=== PATIENT | female | born 1955 | race Caucasian/White ===

== ENCOUNTER 2021-02-01 20:44 | Inpatient (IN) ==
--- NOTE | 2021-02-01 22:52 | Emergency Department Note ---
HPI General Chief complaint: Shortness of Breath/Dyspnea Stated complaint: low O2 sats @ home Time Seen by Provider: 02/01/21 22:03 Source: patient Mode of arrival: ambulatory Limitations: no limitations History of Present Illness HPI Narrative: Narrative: 65 yo F w/ h/o HTN, hypothyroid, RA on chronic daily steroids p/w hypoxia on home O2 monitor. She has been feeling unwell x 6 days w/ malaise, headache, fatigue, and a dry cough. She was seen here in the ED last night and Dx'd w/ COVID19 and influenza. The provider yesterday also suspected a COPD exacerbation and thus started her on azithromycin for presumed COPD exacerbation. He d/w her the option at that time of a steroid burst, and she declined. In speaking w/ the pt, she denies any previous h/o COPD and reports that she has never had PFTs done. She reports that she has inhalers/nebulizers at home but they were given to her after an acute episode of bronchitis. She currently reports that all of her Sx are stable. She has not had any increased SOB, and states that she is only here as her children were worried about her pulse ox, which showed SaO2 in the 70s at home. Related Data Home Medications Medication Instructions Recorded Confirmed aspirin 81 mg tablet,delayed 81 mg PO QDAY 07/12/19 01/29/21 release losartan 50 mg tablet 50 mg PO BID 07/12/19 01/29/21 omega-3 fatty acids 1,000 mg 1,000 mg PO QDAY 07/12/19 01/29/21 capsule Previous Rx's Medication Instructions Recorded meloxicam 7.5 mg tablet See Rx Instructions .ROUTE 05/28/20 .COMPLEX #60 tab folic acid 1 mg tablet 1 mg PO QDAY #30 tab 11/16/20 diclofenac sodium 1 % topical gel 4 g TOPICAL .COMPLEX #100 g 11/18/20 albuterol sulfate 90 mcg/actuation 2 puff INHALATION .q4-6h PRN #8.5 g 11/20/20 aerosol inhaler methotrexate sodium 2.5 mg tablet 20 mg PO QWEEK #32 tab 11/30/20 atorvastatin 40 mg tablet 40 mg PO QHS #90 tab 12/16/20 amlodipine 5 mg tablet See Rx Instructions .ROUTE 12/17/20 .COMPLEX #90 tab levothyroxine 125 mcg tablet See Rx Instructions .ROUTE 12/17/20 .COMPLEX #90 tab prednisone 5 mg tablet 5 mg PO QDAY #30 tab 01/25/21 azithromycin See Rx Instructions .ROUTE 01/31/21 .COMPLEX #6 tab benzonatate [Tessalon Perles] 100 mg PO TID PRN #30 cap 01/31/21 Allergies Allergy/AdvReac Type Severity Reaction Status Date / Time No Known Drug Allergies Allergy Verified 01/29/21 10:14 Review of Systems ROS ROS Narrative: Narrative: PFSH Narrative Patient History Narrative: Narrative: Medical/Surgical/Family History All Active Problems (Updated 02/02/21 @ 03:35 by Dimitri Duffy MD) Pneumonia due to 2019-nCoV (Acute) Influenza A (Acute) Cough (Acute) Hypoxia (Acute) COVID-19 (Acute) Influenza A (Acute) Viral syndrome (Acute) Wheezes (Acute) Shortness of breath (Acute) Hyperlipemia (Acute) Anemia (Acute) Bronchitis, acute (Acute) Chest pain (Acute) Dyspnea (Acute) Racing heart beat (Acute) History of thyroidectomy, total (Acute) History of thyroid cancer (Acute) History of cholecystectomy (Acute) Hypertension (Acute) Multiple joint pain (Acute) Hypothyroidism (Acute) Rheumatoid factor positive (Acute) 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 (Acute) Obesity (Acute) Rheumatoid arthritis (Acute) Rheumatoid nodules (Chronic) Long-term current use of high risk medication other than anticoagulant (Acute) Long-term current use of steroids (Chronic) Encounter for long-term (current) use of high-risk medication (Acute) Lethargy (Acute) Diarrhea (Acute) Fatigue (Acute) Medical History Bronchitis, acute Diarrhea Encounter for long-term (current) use of high-risk medication Fatigue Long-term current use of high risk medication other than anticoagulant Long-term current use of steroids Multiple joint pain Post menopausal syndrome Rheumatoid arthritis Rheumatoid factor positive Rheumatoid nodules Shortness of breath Thyroid cancer (~2004) Viral syndrome Wheezes Surgical History Hx of thyroidectomy (~2004) Family History Mother Congestive heart failure Cardiac pacemaker Chronic obstructive lung disease Grandmother Myocardial infarct Social History Smoking Status: Current every day smoker Alcohol Intake Frequency: a few times a month Substance Use: does not use Exam Narrative Narrative: Narrative: General Limitations: no limitations General appearance: Present alert and in no apparent distress Head Head: Present atraumatic and normocephalic ENT ENT: Present normal oropharynx and mucous membranes moist Chest Chest: Present normal inspection and symmetric chest wall rise Respiratory Respiratory: Present normal lung sounds bilaterally and wheezes (mild, B/L); Absent respiratory distress, rales/crackles, stridor and accessory muscle use Cardiovascular Cardiovascular: Present regular rate, normal rhythm, +S1 and +S2 Adbominal Abdominal: Present soft and normal bowel sounds; Absent distention and tenderness Extremities Extremities: Absent pedal edema Neurological Neurological: Present alert and oriented X3 Psychiatric Psychiatric: Present normal affect Skin Skin: Present warm (WNL) and dry Course Vital Signs Vital signs: Vital Signs Temperature 101.8 F H 02/01/21 20:44 Pulse Rate 76 02/01/21 20:44 Respiratory Rate 22 02/01/21 20:44 Blood Pressure 119/78 02/01/21 20:44 Pulse Oximetry (%) 89 L 02/01/21 20:44 Temperature 101.2 F H 02/02/21 00:47 Pulse Rate 72 02/02/21 02:06 Respiratory Rate 22 02/01/21 20:44 Blood Pressure 96/84 02/02/21 02:06 Pulse Oximetry (%) 97 02/02/21 03:00 MDM MDM Narrative Medical decision making narrative: Narrative: 65 yo F w/ h/o RA on steroids, HTN, and new Dx of COVID19 and influenza p/w hypoxia on home O2 monitor. DDx - COVID19/influenza PNA, bacterial PNA, PE, COPD exacerbation, CHF Pt presented clinically stable, in NAD. Her testing from yesterday showed +COVID and +influenza. Her CXR yesterday and today do not appear c/w bacterial PNA. I considered COPD, and while she may have this, it is as yet undiagnosed. If COPD were present, I would be more comfortable with SaO2 in the 80s, however this is as yet undetermined. CHF was also a consideration. Her BNP was elevated but CXR showed no cardiomegaly and no pulmonary edema. There were no crackles or peripheral edema on exam. Overall CHF was unlikely. PE was unlikely w/ a Wells score of 0. Overall her evaluation showed mild hypoxia (to the mid 80s) on RA likely 2/2 combined COVID and influenza. I started her on dexamethasone and tamiflu and she was accepted for admission by the hospitalist. Lab Data Result diagrams: 02/01/21 23:11 02/01/21 23:11 Labs: Lab Results 02/01/21 02/01/21 Range/Units 23:11 23:11 WBC 7.6 (4.5-11.0) K/mcL RBC 3.82 (3.59-5.38) M/mcL Hgb 11.8 (11.2-15.7) g/dL Hct 36.5 (34.1-44.9) % MCV 95.5 (80.0-100.0) fL MCH 30.9 (26.0-34.0) pg MCHC 32.3 (31.0-36.0) g/dL RDW 16.4 H (11.5-14.5) % Plt Count 158 (140-440) K/mcL MPV 11.3 H (7.4-10.4) fL Neut % (Auto) 80.2 H (38.0-78.0) % Lymph % (Auto) 13.5 L (15.5-49.0) % [place] % (Auto) 6.1 (1.0-12.0) % Eos % (Auto) 0.1 (0.0-7.0) % Baso % (Auto) 0.1 (0.0-2.0) % Lymph # (Auto) 1.02 L (1.50-4.80) K/mcL [place] # (Auto) 0.46 (0.10-0.90) K/mcL Eos # (Auto) 0.01 (0.00-0.70) K/mcL Baso # (Auto) 0.01 (0.00-0.30) K/mcL Absolute Neutrophils 6.07 (1.80-8.00) K/mcL Sodium 136 (133-145) mmol/L Potassium 3.9 (3.3-5.1) mmol/L Chloride 101 (96-108) mmol/L Carbon Dioxide 24 (22-30) mmol/L Anion Gap 11.0 (8.0-16.0) BUN 9 (8-23) mg/dL Creatinine 0.8 (0.6-1.1) mg/dL GFR Calculation 77 Glucose 104 (70-105) mg/dL Calcium 8.8 (8.6-10.4) mg/dL Total Bilirubin 0.4 (0.1-1.0) mg/dL AST 23 (<32) U/L ALT 15 (<40) U/L Alkaline Phosphatase 82 (39-117) U/L NT-Pro-B Natriuret Pep 1101.0 H (<125.0) pg/mL Total Protein 6.7 (5.9-8.4) gm/dL Albumin 3.8 (3.2-5.2) gm/dL Globulin 2.9 (2.2-3.7) gm/dL Albumin/Globulin Ratio 1.3 (1.0-2.3) Discharge Plan Patient/Caregiver Discharge Instructions Pt seen by BOOTH MANAGER/PA only: No Clinical Impression: Cough, Hypoxia, COVID-19, Influenza A Patient Disposition: Xfer As Inpt ([facility]) Condition: Fair Follow up with: Terence Glover ARNP [Primary Care Provider] - Prescriptions: No Action omega-3 fatty acids [Fish Oil Concentrate] 1,000 mg capsule 1,000 mg PO QDAY RF: 0 aspirin 81 mg tablet,delayed release (DR/EC) 81 mg PO QDAY RF: 0 losartan 50 mg tablet 50 mg PO BID RF: 0 folic acid 1 mg tablet 1 mg PO QDAY Qty: 30 RF: 2 methotrexate sodium 2.5 mg tablet 20 mg PO QWEEK Qty: 32 RF: 2 atorvastatin 40 mg tablet 40 mg PO QHS Qty: 90 RF: 0 levothyroxine [Euthyrox] 125 mcg tablet See Rx Instructions .ROUTE .COMPLEX Qty: 90 RF: 0 amlodipine 5 mg tablet See Rx Instructions .ROUTE .COMPLEX Qty: 90 RF: 0 prednisone 5 mg tablet 5 mg PO QDAY Qty: 30 RF: 1 albuterol sulfate [ProAir HFA] 90 mcg/actuation HFA aerosol inhaler 2 puff inhalation .q4-6h PRN (Reason: cough, shortness of breath, wheezing) Qty: 8.5 RF: 0 diclofenac sodium 1 % gel 4 g topical .COMPLEX Qty: 100 RF: 0 meloxicam 7.5 mg tablet See Rx Instructions .ROUTE .COMPLEX Qty: 60 RF: 5 azithromycin 250 mg tablet See Rx Instructions .ROUTE .COMPLEX Qty: 6 RF: 0 benzonatate [Tessalon Perles] 100 mg capsule 100 mg PO TID PRN (Reason: cough) Qty: 30 RF: 0
[2021-02-01] MEDS ORDERED: ACETAMINOPHEN 325 MG TABLET PO ONE (23:53)
[2021-02-01 23:56] LABS: Basophils # (Auto) 0.01 K/mcL (0.00-0.30); Basophils % (Auto) 0.1 % (0.0-2.0); Eosinophils # (Auto) 0.01 K/mcL (0.00-0.70); Eosinophils % (Auto) 0.1 % (0.0-7.0); Hematocrit 36.5 % (34.1-44.9); Hemoglobin 11.8 g/dL (11.2-15.7); Lymphocytes # (Auto) 1.02 K/mcL (1.50-4.80); Lymphocytes % (Auto) 13.5 % (15.5-49.0); Mean Cell Volume 95.5 fL (80.0-100.0); Mean Corpuscular HGB Conc 32.3 g/dL (31.0-36.0); Mean Platelet Volume 11.3 fL (7.4-10.4); Monocytes # (Auto) 0.46 K/mcL (0.10-0.90); Monocytes % (Auto) 6.1 % (1.0-12.0); Neutrophils % (Auto) 80.2 % (38.0-78.0); Platelet Count 158 K/mcL (140-440); RBC 3.82 M/mcL (3.59-5.38); Red Cell Distribution Width 16.4 % (11.5-14.5); WBC 7.6 K/mcL (4.5-11.0)
[2021-02-02 00:19] LABS: ALT/SGPT 15 U/L (<40); AST/SGOT 23 U/L (<32); Albumin 3.8 gm/dL (3.2-5.2); Albumin/Globulin Ratio 1.3 (1.0-2.3); Alkaline Phosphatase 82 U/L (39-117); Bilirubin,Total 0.4 mg/dL (0.1-1.0); Blood Urea Nitrogen 9 mg/dL (8-23); Calcium 8.8 mg/dL (8.6-10.4); Carbon Dioxide 24 mmol/L (22-30); Chloride 101 mmol/L (96-108); Globulin 2.9 gm/dL (2.2-3.7); Glomerular Filtration Rate 77; Glucose 104 mg/dL (70-105)
--- NOTE | 2021-02-02 01:33 | XRay Report ---
CLINICAL INFORMATION: dyspnea COMPARISON: 01/29/2021 and 01/31/2021 FINDINGS: Borderline cardiomegaly is unchanged. Upper lobe pulmonary vessels are mildly distended compared to prior examinations. There is also minimal peribronchial vascular edema noted. Mild underlying right basilar airspace disease has improved. No effusion IMPRESSION: Mild CHF or volume overload. Small right basilar infiltrate-improving Interpreted and Authenticated by: Solitario Glez 02/02/21
[2021-02-02] MEDS ORDERED: DEXAMETHASONE 10 MG/ML VIAL IV ONE ×2 (01:45→04:14)
[2021-02-02] MEDS ORDERED: OSELTAMIVIR PHOSPHATE 75 MG CAPSULE PO ONE ×2 (01:45→04:14)
--- NOTE | 2021-02-02 02:20 | Internal Med History&Physical ---
HPI History of Present Illness Patient information: Note initiated : 02/02/21 at 2:16 am Service Date, if different from initiated Date: [] Patient: Ophelia Chapman 65 y/o F admitted on for low O2 sats @ home. Chief Complaint: [shortness of breath and hypoxia] History of present illness: Ms. Chapman is a 65 year old female with a history of hypertension, hyperlipidemia, rheumatoid arthritis on methotrexate and prednisone, concern for possible underlying obstructive airway disease who presented to the ED on 02/02/21 for hypoxia. The patient was recently diagnosed with COVID and Influenza A by rapid antigen test as well as community acquired pneumonia that was being treated with oral azithromycin. In the ED the patient had a fever and a new oxygen requirement in the ED of 1 -2 L/min by nasal canula. Pro-BNP was mildly elevated, the patient did not appear to be volume overloaded on exam. Chest xray was consistent with mild congestive heart failure and there was an improving right sided infiltrate. Review of systems Constitutional: no fever, fatigue, or weight loss Eyes: no vision changes or pain Cardiovascular: no chest pain, no palpitations Respiratory: positive for nonproductive cough and dyspnea Gastrointestinal: no abdominal pain, no nausea, vomiting, or diarrhea Genitourinary: no dysuria or difficulty voiding Musculoskeletal: no arthralgia or myalgia Integumentary: no skin lesion or wound Neurological: no focal weakness or numbness Psychiatric: no anxiety or depression Physical exam Head: Atraumatic, normal inspection. Eyes: normal appearance, no scleral icterus. Neck: full ROM Respiratory: diffuse bilateral wheezes Cardiovascular: normal rate and rhythm, S1, S2. GI/Abdominal: soft, nontender, no guarding. Extremities: full range of motion, nontender. Neurological: CN II-XII intact, intact motor, intact sensation. Psychiatric: normal mood. Skin: warm, normal color PFSH PFSH All Active Problems (Updated 02/02/21 @ 03:35 by Dimitri Duffy MD) Pneumonia due to 2019-nCoV (Acute) Influenza A (Acute) Cough (Acute) Hypoxia (Acute) COVID-19 (Acute) Influenza A (Acute) Viral syndrome (Acute) Wheezes (Acute) Shortness of breath (Acute) Hyperlipemia (Acute) Anemia (Acute) Bronchitis, acute (Acute) Chest pain (Acute) Dyspnea (Acute) Racing heart beat (Acute) History of thyroidectomy, total (Acute) History of thyroid cancer (Acute) History of cholecystectomy (Acute) Hypertension (Acute) Multiple joint pain (Acute) Hypothyroidism (Acute) Rheumatoid factor positive (Acute) 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 (Acute) Obesity (Acute) Rheumatoid arthritis (Acute) Rheumatoid nodules (Chronic) Long-term current use of high risk medication other than anticoagulant (Acute) Long-term current use of steroids (Chronic) Encounter for long-term (current) use of high-risk medication (Acute) Lethargy (Acute) Diarrhea (Acute) Fatigue (Acute) Medical History Bronchitis, acute Diarrhea Encounter for long-term (current) use of high-risk medication Fatigue Long-term current use of high risk medication other than anticoagulant Long-term current use of steroids Multiple joint pain Post menopausal syndrome Rheumatoid arthritis Rheumatoid factor positive Rheumatoid nodules Shortness of breath Thyroid cancer (~2004) Viral syndrome Wheezes Surgical History Hx of thyroidectomy (~2004) Family History Mother Congestive heart failure Cardiac pacemaker Chronic obstructive lung disease Grandmother Myocardial infarct Social History alcohol intake frequency: a few times a month substance use type: does not use seatbelt use: always MEDS/ALLERGIES Home Medications and Allergies Home Medications Medication Instructions Recorded Confirmed Type folic acid 1 mg tablet 1 mg PO QDAY #30 tab 11/16/20 02/02/21 Rx albuterol sulfate 90 mcg/actuation 2 puff INHALATION .q4-6h PRN #8.5 g 11/20/20 02/02/21 Rx aerosol inhaler methotrexate sodium 2.5 mg tablet 20 mg PO QWEEK #32 tab 11/30/20 02/02/21 Rx atorvastatin 40 mg tablet 40 mg PO QHS #90 tab 12/16/20 02/02/21 Rx prednisone 5 mg tablet 5 mg PO QDAY #30 tab 01/25/21 02/02/21 Rx amlodipine 5 mg PO DAILY 02/02/21 02/02/21 History diclofenac sodium 4 g TOPICAL .COMPLEX PRN 02/02/21 02/02/21 History levothyroxine [Euthyrox] 125 mcg PO DAILY 02/02/21 02/02/21 History losartan 50 mg PO BID 02/02/21 02/02/21 History Allergies Allergy/AdvReac Type Severity Reaction Status Date / Time No Known Drug Allergies Allergy Verified 01/29/21 10:14 EXAM Constitutional Vitals: Temp Pulse Resp BP Pulse Ox 101.2 F H 72 22 96/84 89 L 02/02/21 00:47 02/02/21 02:06 02/01/21 20:44 02/02/21 02:06 02/02/21 02:06 DATA Data Completed and Pending Labs: Labs from last 24 hours 02/01/21 02/01/21 23:11 23:11 WBC 7.6 RBC 3.82 Hgb 11.8 Hct 36.5 MCV 95.5 MCH 30.9 MCHC 32.3 RDW 16.4 H Plt Count 158 MPV 11.3 H Neut % (Auto) 80.2 H Lymph % (Auto) 13.5 L [place] % (Auto) 6.1 Eos % (Auto) 0.1 Baso % (Auto) 0.1 Lymph # (Auto) 1.02 L [place] # (Auto) 0.46 Eos # (Auto) 0.01 Baso # (Auto) 0.01 Absolute Neutrophils 6.07 Sodium 136 Potassium 3.9 Chloride 101 Carbon Dioxide 24 Anion Gap 11.0 BUN 9 Creatinine 0.8 GFR Calculation 77 Glucose 104 Calcium 8.8 Total Bilirubin 0.4 AST 23 ALT 15 Alkaline Phosphatase 82 NT-Pro-B Natriuret Pep 1101.0 H Total Protein 6.7 Albumin 3.8 Globulin 2.9 Albumin/Globulin Ratio 1.3 A/P Narrative A/P Narrative: Assessment: 65 year old female with a history of hypertension, hyperlipidemia, rheumatoid arthritis on methotrexate and prednisone, concern for possible underlying obstructive airway disease who was recently diagnosed COVID-19 and influenza as well as a right lower lobe community acquired pneumonia that was being treated with oral azithromycin. The patient was admitted for acute hypoxic respiratory failure. #Acute hypoxic respiratory failure #Probable COPD exacerbation #RSV infection #Discordant COVID-19 test results #Elevated pro-BNP #Rheumatoid arthritis-on methotrexate and prednisone #Hypertension #Hyperlipidemia #Hypothyroidism #Hx of thyroid cancer s/p thyroidectomy Plan -Dexamethasone and Remdesivir for now pending PANTHER result. -Oxygen supplementation -Duonebs Q4 hr for now and Albuterol neb prn -TTE ordered -CT chest -Home medications reconciliation -DVT ppx: Lovenox -Code status: Full -Disposition: home when stable, outpatient PFT when back to baseline respiratory status. Time Spent With Patient Time: Total time spent is greater than 50% in coordination of care (as documented) at patient's floor/unit and/or counseling patient:
[2021-02-02] MEDS ORDERED: LORazepam 2 MG/ML VIAL IV ONE (02:33)
[2021-02-02] MEDS ORDERED: cefTRIAXone 1 GM VIAL IM SCH (04:14)
[2021-02-02] MEDS ORDERED: ONDANSETRON 4 MG/2 ML VIAL IV PRN (04:14)
[2021-02-02] MEDS ORDERED: ALBUTEROL SULFATE 2.5 MG/3 ML NEBULIZER NEB PRN (04:14)
[2021-02-02] MEDS ORDERED: AZITHROMYCIN 500 MG in DEXTROSE 5% IN WATER 250 ML IV SCH (04:14)
[2021-02-02] MEDS ORDERED: cefTRIAXone 1 GM VIAL ONE (04:31)
[2021-02-02] MEDS: 0.9 % SODIUM CHLORIDE 10 ML SYRINGE IV SCH ×4 (05:00→21:51)
[2021-02-02] MEDS: IPRATROPIUM/ALBUTEROL 3 ML AMPUL.NEB NEB SCH ×6 (06:52→23:08)
[2021-02-02] MEDS ORDERED: REMDESIVIR 200 MG in 0.9 % SODIUM CHLORIDE 250 ML IV ONE (07:00)
--- NOTE | 2021-02-02 07:37 | EKG ---
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
[2021-02-02] MEDS: DOCUSATE SODIUM 100 MG CAPSULE PO SCH ×2 (08:03→21:51)
[2021-02-02] MEDS: ENOXAPARIN 40 MG/0.4 ML SYRINGE SQ SCH (08:16)
[2021-02-02] MEDS ORDERED: OSELTAMIVIR PHOSPHATE 75 MG CAPSULE PO SCH (09:00)
[2021-02-02] MEDS ORDERED: DEXAMETHASONE 10 MG/ML VIAL IV SCH (09:00)
[2021-02-02] MEDS ORDERED: IOPAMIDOL 100 ML BOTTLE IV ONE (10:08)
--- NOTE | 2021-02-02 10:43 | Cat Scan Report ---
CLINICAL INFORMATION: Hypoxia COMPARISON: None. TECHNIQUE: 80 cc of Isovue-370 were injected intravenously, and 25 seconds later, 0.625 mm helical slices were obtained from the lung apices through the bases. Following reconstruction, 2.5 mm sagittal, coronal and axial reformations were processed and reviewed at lung, mediastinal and bone windows. 7 mm axial MIPS were also obtained to optimize pulmonary nodule detection. The exam was performed using radiation dose optimization techniques including, but not limited to, automated exposure control, adjustment of the mA and/or kV according to patient size and use of iterative reconstruction technique. FINDINGS: Mediastinal windows show the pulmonary arteries are normal in diameter and well-opacified: no evidence of embolus. Thoracic aorta also normal in diameter with diffuse intimal thickening. The heart is mildly enlarged with scattered calcific plaque in the coronary arteries. No definite adenopathy in the mediastinal hilar or axillary regions. The esophagus is grossly normal. Thyroid is unremarkable. Pulmonary parenchymal windows show elevated lung volumes and wall thickening/dilatation of bronchi compatible with bronchitis. There is scattered fibrosis in the periphery of both mid and lower lungs-particularly the right middle lobe and lingula. There are no solid or groundglass nodules. Pleural spaces are normal. Bone windows show no osseous abnormalities. Images through the superior abdomen are unremarkable. IMPRESSION: 1. Bronchitis or asthma. No acute findings. 2. No evidence of pulmonary embolus. Interpreted and Authenticated by: Solitario Glez 02/02/21
[2021-02-02] MEDS ORDERED: SENNOSIDES 1 TABLET PO SCH (21:00)
[2021-02-02] MEDS ORDERED: ATORVASTATIN 40 MG TABLET PO SCH (21:00)
[2021-02-02] MEDS: ACETAMINOPHEN 325 MG TABLET PO PRN (21:57)
[2021-02-03] MEDS: IPRATROPIUM/ALBUTEROL 3 ML AMPUL.NEB NEB SCH ×2 (03:15→07:48)
[2021-02-03] MEDS: ACETAMINOPHEN 325 MG TABLET PO PRN (06:32)
[2021-02-03] MEDS: 0.9 % SODIUM CHLORIDE 10 ML SYRINGE IV SCH (06:32)
[2021-02-03 06:58] LABS: Basophils # (Auto) 0.02 K/mcL (0.00-0.30); Basophils % (Auto) 0.2 % (0.0-2.0); Eosinophils # (Auto) 0 K/mcL (0.00-0.70); Eosinophils % (Auto) 0 % (0.0-7.0); Hematocrit 34.3 % (34.1-44.9); Hemoglobin 10.9 g/dL (11.2-15.7); Lymphocytes # (Auto) 2.38 K/mcL (1.50-4.80); Lymphocytes % (Auto) 19.2 % (15.5-49.0); Mean Cell Volume 95.5 fL (80.0-100.0); Mean Corpuscular HGB Conc 31.8 g/dL (31.0-36.0); Mean Platelet Volume 11.8 fL (7.4-10.4); Monocytes # (Auto) 1.27 K/mcL (0.10-0.90); Monocytes % (Auto) 10.2 % (1.0-12.0); Neutrophils % (Auto) 70.4 % (38.0-78.0); Platelet Count 155 K/mcL (140-440); RBC 3.59 M/mcL (3.59-5.38); Red Cell Distribution Width 16.4 % (11.5-14.5); WBC 12.4 K/mcL (4.5-11.0)
[2021-02-03 07:24] LABS: Blood Urea Nitrogen 15 mg/dL (8-23); Calcium 8.6 mg/dL (8.6-10.4); Carbon Dioxide 25 mmol/L (22-30); Chloride 101 mmol/L (96-108); Glomerular Filtration Rate 77; Glucose 105 mg/dL (70-105)
[2021-02-03] MEDS ORDERED: LEVOTHYROXINE 125 MCG TABLET PO SCH (07:30)
[2021-02-03] MEDS: DOCUSATE SODIUM 100 MG CAPSULE PO SCH (07:51)
[2021-02-03] MEDS ORDERED: predniSONE 20 MG TABLET PO SCH (08:00)
[2021-02-03] MEDS: ENOXAPARIN 40 MG/0.4 ML SYRINGE SQ SCH (08:36)
--- NOTE | 2021-02-03 08:47 | Discharge Summary ---
Discharge Provider Provider Patient information: Note initiated : 02/03/21 at 8:43 am Service Date, if different from initiated Date: [] Patient: Ophelia Chapmna 65 y/o F admitted on 02/02/21 for low O2 sats @ home. Chief Complaint: [] Date of admission: 02/02/21 04:02 Discharge date: 02/03/21 Primary care physician: SULAIMAN Donaldson Consults: 02/02/21 Consult to Physician [CONS] Stat Comment: Consulting Provider: Braydon Morin Reason For Exam: Physician to Consult Discharge Meds Discharge Medications Home Medications folic acid 1 mg tablet 1 mg PO QDAY #30 tab 11/16/20 [Rx Confirmed 02/02/21 Last Taken Unknown] albuterol sulfate 90 mcg/actuation aerosol inhaler 2 puff INHALATION .q4-6h PRN #8.5 g 11/20/20 [Rx Confirmed 02/02/21 Last Taken Unknown] methotrexate sodium 2.5 mg tablet 20 mg PO QWEEK #32 tab 11/30/20 [Rx Confirmed 02/02/21 Last Taken 01/28/21 08:00] atorvastatin 40 mg tablet 40 mg PO QHS #90 tab 12/16/20 [Rx Confirmed 02/02/21 Last Taken Unknown] prednisone 5 mg tablet 5 mg PO QDAY #30 tab 01/25/21 [Rx Confirmed 02/02/21 Last Taken Unknown] amlodipine 5 mg PO DAILY 02/02/21 [History Confirmed 02/02/21 Last Taken Unknown] diclofenac sodium 4 g TOPICAL .COMPLEX PRN 02/02/21 [History Confirmed 02/02/21 Last Taken Unknown] levothyroxine [Euthyrox] 125 mcg PO DAILY 02/02/21 [History Confirmed 02/02/21 Last Taken Unknown] losartan 50 mg PO BID 02/02/21 [History Confirmed 02/02/21 Last Taken Unknown] ipratropium-albuterol 3 ml INHALATION Q6H #180 ml 02/03/21 [Rx Last Taken Unknown] prednisone 40 mg PO QAMCC 5 Days #10 tab 02/03/21 [Rx Last Taken Unknown] COURSE Hospital Course Hospital course: Ms. Chapman is a 65 year old female with a history of hypertension, hyperlipidemia, rheumatoid arthritis on methotrexate and prednisone, concern for possible underlying obstructive airway disease who presented to the ED on 02/02/21 for hypoxia. The patient was recently diagnosed with COVID and Influenza A by rapid antigen test as well as community acquired pneumonia that was being treated with oral azithromycin. In the ED the patient had a fever and a new oxygen requirement in the ED of 1 -2 L/min by nasal canula. Pro-BNP was mildly elevated, the patient did not appear to be volume overloaded on exam. Chest xray was consistent with mild congestive heart failure and there was an improving right sided infiltrate. 02/03: Chest xray does not show any evidence of bacterial pneumonia, most consistent with bronchitis. COVID PCR negative x2, both CHANTAL and PANTHER, Respiratory panel 1&2 positive for RSV B and Rhinovirus, discontinued COVID-19 and Influenza treatment, discontinued antibiotics. Suspect the patient has undiagnosed COPD. Discharged on Prednisone 40 mg daily for 5 days and duonebs Q6 hrs. Follow up with pulmonology after discharge. Physical exam Head: Atraumatic, normal inspection. Eyes: normal appearance, no scleral icterus. Neck: full ROM Respiratory: diffuse bilateral wheezes Cardiovascular: normal rate and rhythm, S1, S2. GI/Abdominal: soft, nontender, no guarding. Extremities: full range of motion, nontender. Neurological: CN II-XII intact, intact motor, intact sensation. Psychiatric: normal mood. Skin: warm, normal color Discharge diagnosis: Acute bronchitis Secondary discharge diagnosis: Probable COPD Time Spent with Patient Time attestation: Total time spent providing and/or coordinating discharge services: EXAM Constitutional Vitals: Temp Pulse Resp BP Pulse Ox 96.6 F L 83 16 127/71 92 02/03/21 08:03 02/03/21 07:50 02/03/21 07:50 02/03/21 08:03 02/03/21 08:03 Discharge Data Data Completed and Pending Labs on day of discharge: Labs from last 24 hours 02/03/21 02/03/21 05:39 05:39 WBC 12.4 H RBC 3.59 Hgb 10.9 L Hct 34.3 MCV 95.5 MCH 30.4 MCHC 31.8 RDW 16.4 H Plt Count 155 MPV 11.8 H Neut % (Auto) 70.4 Lymph % (Auto) 19.2 [place] % (Auto) 10.2 Eos % (Auto) 0 Baso % (Auto) 0.2 Lymph # (Auto) 2.38 [place] # (Auto) 1.27 H Eos # (Auto) 0 Baso # (Auto) 0.02 Absolute Neutrophils 8.74 H Sodium 139 Potassium 3.4 Chloride 101 Carbon Dioxide 25 Anion Gap 13.0 BUN 15 Creatinine 0.8 GFR Calculation 77 Glucose 105 Calcium 8.6 Magnesium 2.1 Discharge Plan Patient/Caregiver Discharge Instructions Activity: increase activity as tolerated Diet: Regular Diet Prescriptions: New prednisone 20 mg Tablet 40 mg PO QAMCC 5 Days Qty: 10 RF: 0 ipratropium-albuterol 0.5 mg-3 mg(2.5 mg base)/3 mL solution for nebulization 3 ml inhalation Q6H Qty: 180 RF: 4 Continued folic acid 1 mg tablet 1 mg PO QDAY Qty: 30 RF: 2 methotrexate sodium 2.5 mg tablet 20 mg PO QWEEK Qty: 32 RF: 2 atorvastatin 40 mg tablet 40 mg PO QHS Qty: 90 RF: 0 prednisone 5 mg tablet 5 mg PO QDAY Qty: 30 RF: 1 albuterol sulfate [ProAir HFA] 90 mcg/actuation HFA aerosol inhaler 2 puff inhalation .q4-6h PRN (Reason: cough, shortness of breath, wheezing) Qty: 8.5 RF: 0 amlodipine 5 mg tablet 5 mg PO DAILY RF: 0 levothyroxine [Euthyrox] 125 mcg tablet 125 mcg PO DAILY RF: 0 diclofenac sodium 1 % gel 4 g topical .COMPLEX PRN (Reason: Pain) RF: 0 losartan 50 mg tablet 50 mg PO BID RF: 0 Follow Up Plan Follow up with: Terence Glover ARNP [Primary Care Provider] - Andrea Arroyo MD [Physician] - 02/10/21 Patient Disposition: Home, Self-Care Prognosis: Fair Overall status at discharge: patient is progressing back to baseline Discharge Orders: Discharge Order (Routine); Ordered 02/03/21 Ordered By: Braydon MOON VTE Deep Vein Thrombosis/Pulmonary Embolism Present on Admission: No
[2021-02-03] MEDS ORDERED: FOLIC ACID 1 MG TABLET PO SCH (09:00)
[2021-02-03] MEDS ORDERED: TIOTROPIUM BROMIDE 18 MCG INHALANT INH SCH (09:00)
[2021-02-03] MEDS ORDERED: amLODIPine 5 MG TABLET PO SCH (09:00)
[2021-02-03] MEDS ORDERED: FLUTICASONE/SALMETEROL 50/100 INHALER #14 INH SCH (09:00)
[2021-02-03] MEDS ORDERED: PNEUMOCOCCAL 23-VAL P-SAC VAC 0.5 ML SYRINGE IM ONE (10:00)
[2021-02-03] MEDS ORDERED: FLU VACC QS2021-22(6MOS UP)/PF 60 MCG/0.5 ML SYRINGE IM ONE (10:15)
[2021-02-03] MEDS ORDERED: REMDESIVIR 100 MG in 0.9 % SODIUM CHLORIDE 250 ML IV SCH (11:00)
== END 2021-02-03 11:20 | disposition home or self-care (01) | DRG 202 ==
LOC: ED 20:44 → ICU 02-02 04:02
PROVIDERS: ADMIT Internal Medicine; ATTEND Internal Medicine